=== PATIENT | male | born 1985 | race Caucasian/White ===

== ENCOUNTER 2023-07-24 23:33 | Emergency (ER) | payer BC, SELFPAY ==
[2023-07-24 23:42] VITALS: BP 129/76; PULSE 63; RESP 24; TEMP 35.7; O2SAT 99; BMI 39.2
--- NOTE | 2023-07-25 00:08 | ED.GENADULT ---
HPI - General Adult General Time Seen by Provider: 00:09 Date Seen: 07/25/23 Chief complaint: Extremity Pain/Injury, Lower Stated complaint: right leg pain Time Seen by Provider: 07/25/23 00:08 Source: patient, family and old records reviewed Mode of arrival: ambulatory Limitations: no limitations History of Present Illness HPI narrative: 37-year-old male who presents today with back pain and leg pain. Patient reports this is been going on for about a month but pain was worse today and so patient decided to come in. Pain is in the right buttock extending down the right leg into the bed of the right foot. He describes it as burning on the bottom of the foot. Denies weakness, bowel or bladder incontinence. Related Data Home Medications Medication Instructions Recorded Confirmed acetaminophen 500 mg tablet 1,000 mg PO Q4-6H PRN 07/24/23 07/24/23 (Tylenol Extra Strength) Previous Rx's Medication Instructions Recorded gabapentin 300 mg capsule 300 mg PO TID #90 caps 07/25/23 prednisone 10 mg tablets in a dose See Rx Instructions PO .COMPLEX 07/25/23 pack #31 ea Allergies Allergy/AdvReac Type Severity Reaction Status Date / Time No Known Drug Allergies Allergy Verified 07/24/23 23:49 [facility] Medical History (Updated 07/25/23 @ 00:45 by Georgi Dodge MD) Patient denies medical problems ?Z78.9 - Other specified health status (ICD-10) Exam Narrative: Exam Narrative: General: well nourished , NAD Head: Atraumatic and normocephalic ENT: External ears and external nose are normal Eyes: Conjunctiva clear, pupils are equal reactive, external ocular motions are intact Neck: Full spontaneous range of motion of the neck Lungs: No respiratory distress Musculoskeletal: Tenderness of the right buttock and right sciatic area. Pain with extension at the knee. Strength of ankle plantar and dorsiflexion, knee flexion extension intact. Sensation of the lower extremity intact. Neurologic: No gross focal neurologic deficits Skin: No rashes Psych: Mood and affect are appropriate Const: Vital Signs, click to edit/add: Vital Signs - 24 hr 07/24/23 23:42 Temperature 96.2 F L Pulse Rate [Left P ulse Oximeter] 63 Respiratory Rate 24 Blood Pressure [Ri ght Forearm] 129/76 Pulse Oximetry 99 Oxygen Delivery Me thod Room Air Course Course ED Course: Patient seen examined, prior records reviewed. Patient presents today with right leg pain going on for a month or 2, extending from the right buttock distally the bottom of the foot. On exam, strength and sensation are intact. No bowel or bladder incontinence to suggest cauda equina syndrome. Symptoms are most consistent with lumbar radiculopathy and patient will be treated with Toradol in the emergency department as well as gabapentin and prednisone and discharged on same with follow-up with orthopedics for physical therapy and further evaluation. Reevaluation(s) Time of Reevaluation #1: 01:06 Reevaluation #1: Improved after Toradol. Discussed continuing pain management at home as well as prednisone use, follow-up for physical therapy and consideration for advanced imaging including MRI Vital Signs Vital signs: Initial Vital Signs Temperature 96.2 F L 07/24/23 23:42 Temperature Source Temporal Artery Scan 07/24/23 23:42 Pulse Rate 63 07/24/23 23:42 Pulse Rhythm Regular 07/24/23 23:42 Respiratory Rate 24 07/24/23 23:42 Blood Pressure 129/76 07/24/23 23:42 Blood Pressure Mean 93 07/24/23 23:42 Blood Pressure Position Left Lateral 07/24/23 23:42 Pulse Oximetry 99 07/24/23 23:42 Oxygen Delivery Method Room Air 07/24/23 23:42 Vital Signs Temperature 96.2 F L 07/24/23 23:42 Pulse Rate 63 07/24/23 23:42 Respiratory Rate 24 07/24/23 23:42 Blood Pressure 129/76 07/24/23 23:42 Pulse Oximetry 99 07/24/23 23:42 Oxygen Delivery Method Room Air 07/24/23 23:42 Temperature 96.2 F L 07/24/23 23:42 Pulse Rate 63 07/24/23 23:42 Respiratory Rate 24 07/24/23 23:42 Blood Pressure 129/76 07/24/23 23:42 Pulse Oximetry 99 07/24/23 23:42 Oxygen Delivery Method Room Air 07/24/23 23:42 Medications Administered Medications: Generic Name Dose Route Start Last Admin Trade Name Freq PRN Reason Stop Dose Admin Gabapentin 300 mg 07/25/23 00:16 07/25/23 00:43 Gabapentin 300 Mg Capsule PO 07/25/23 00:17 300 mg ONCE ONE Administration Ketorolac Tromethamine 30 mg 07/25/23 00:16 07/25/23 00:37 Ketorolac 30 Mg/Ml Inj IM 07/25/23 00:17 30 mg ONCE ONE Administration Prednisone 60 mg 07/25/23 00:16 07/25/23 00:34 Prednisone 20 Mg Tablet PO 07/25/23 00:17 60 mg ONCE ONE Administration Discharge Plan Discharge Clinical Impression: Right lumbar radiculopathy Patient Disposition: Home, Self-Care Condition: Stable Instructions: Lumbar Radiculopathy (ED) Additional Instructions: Ibuprofen 600mg every 6 hours alternating with Tylenol 650mg every 6 hours Oxycodone for severe pain Gabapentin as scheduled Follow-up with orthopedics [phone] Activity Level: Light activity Discharge Diet: Regular Prescriptions: New prednisone 10 mg tablets,dose pack See Rx Instructions .ROUTE .COMPLEX Qty: 31 0RF Rx Instructions: 40 mg daily for 3 days, then 30 mg daily for 3 days, then 20 mg daily for 3 days, then 10 mg daily for 3 days then 5 mg daily for 2 days gabapentin 300 mg capsule 300 mg PO TID Qty: 90 0RF No Action acetaminophen [Tylenol Extra Strength] 500 mg tablet 1,000 mg PO Q4-6H PRN Follow Up/Referrals: Provider,Not a Local [Primary Care Provider] - Stand Alone Forms: [employer] Info Instructions
[2023-07-25] MEDS: predniSONE 20 MG TABLET 60 MG PO (00:34)
[2023-07-25] MEDS: KETOROLAC 30 MG/ML inj IM (00:37)
[2023-07-25] MEDS: GABAPENTIN 300 MG CAPSULE PO (00:43)
== END 2023-07-25 01:23 | disposition home or self-care (01) ==
PROVIDERS: Emergency Provider Family Medicine
DX: M54.16 Radiculopathy, lumbar region (principal)
CPT/HCPCS: 96372; 99283; 99284; A9270; J1885; J7512